=== PATIENT | female | born 1990 | race Caucasian/White ===

== ENCOUNTER → 2017-09-09 | Outpatient (CLI) | payer OTHER ==
[~2017-09-09] MED LIST: AMOCLA875 PO; CODACE30 PO; YAZ; [UNRECOGNIZED DRUG - CODE] PO
[2017-09-12 20:07] LABS: CHLAMYDIA TRACHOMATIS, NAA Negative (Negative); NEISSERIA GONORRHOEAE, NAA Negative (Negative)
== END | disposition home or self-care (01) ==
LOC: LAB SHORT 10:00 → LAB 10:00
PROVIDERS: Obstetrics & Gynecology
DX: Z11.3 Encounter for screening for infections with a predominantly sexual mode of transmission (principal)
CPT/HCPCS: 87491; 87591

== ENCOUNTER → 2019-07-19 | Outpatient (CLI) | payer BC ==
[~2019-07-19] MED LIST changes: +EXPECTA PRENAT1 EACH; +IBUP800 PO
[2019-07-24 04:07] LABS: CHLAMYDIA TRACHOMATIS, NAA Negative (Negative); NEISSERIA GONORRHOEAE, NAA Negative (Negative)
== END | disposition home or self-care (01) ==
LOC: LAB SHORT 14:15 → LAB 14:15
PROVIDERS: Obstetrics & Gynecology
DX: Z01.419 Encounter for gynecological examination (general) (routine) without abnormal findings (principal); Z11.3 Encounter for screening for infections with a predominantly sexual mode of transmission
CPT/HCPCS: 87491; 87591; 87624; G0123

== ENCOUNTER → 2020-01-03 | Outpatient (CLI) | payer BC | END | disposition home or self-care (01) | LOC: LAB 14:00 → LAB SHORT 14:00 | DX: Z34.83 Encounter for supervision of other normal pregnancy, third trimester (principal) | CPT/HCPCS: 87081; 87653 ==

== ENCOUNTER 2020-01-22 20:09 | Inpatient (IN) | payer BC ==
[~2020-01-22] VITALS: Ht 167.6 cm; Wt 83.0 kg
[2020-01-22] MEDS ORDERED: PRENATAL TABLE1 EAC2 PO (20:27)
[2020-01-22 20:54] LABS: BASOPHILS ABSOLUTE AUTO 0.04 K/mm3 (0.00-0.23); BASOPHILS PERCENT AUTO 0 % (0-2); EOSINOPHILS ABSOLUTE AUTO 0.09 K/mm3 (0.00-0.68); EOSINOPHILS PERCENT AUTO 1 % (0-6); Hematocrit 36.5 % (33.0-51.0); Hemoglobin 12.4 g/dL (11.5-16.0); IMMATURE GRAN ABSOLUTE AUTO 0.17 K/mm3 (0.00-0.10); IMMATURE GRAN PERCENT AUTO 1 % (0-1); LYMPHOCYTES PERCENT AUTO 19 % (21-46); MONOCYTES ABSOLUTE AUTO 0.93 K/mm3 (0.16-1.47); MONOCYTES PERCENT AUTO 7 % (4-13); Mean Corpuscular Volume 91 fL (80-100); Mean Platelet Volume 9.8 fL (9.1-12.4); NEUTROPHILS ABSOLUTE AUTO 10.13 K/mm3 (1.96-9.15); NEUTROPHILS PERCENT AUTO 72 % (41-73); Platelet Count 200 K/mm3 (150-400); RDW Coefficient Variation 13.4 % (11.7-14.2); RDW Standard Deviation 44.9 fL (35.1-46.3); White Blood Cell Count 14.06 K/mm3 (4.00-11.30)
[2020-01-24 05:25] LABS: Hematocrit 32.4 % (33.0-51.0); Hemoglobin 10.7 g/dL (11.5-16.0); Mean Corpuscular HGB 30.5 pg (26.0-34.0); Mean Corpuscular Volume 92 fL (80-100); Mean Platelet Volume 10.1 fL (9.1-12.4); Platelet Count 168 K/mm3 (150-400); RDW Coefficient Variation 13.7 % (11.7-14.2); RDW Standard Deviation 45.1 fL (35.1-46.3); Red Blood Cell Count 3.51 M/mm3 (3.80-5.20); White Blood Cell Count 16.88 K/mm3 (4.00-11.30)
--- NOTE | 2020-01-24 13:29 | NUR ---
ASSIST BABY JUST COMPLETED FEEDING WHEN I ROUNDED. MOM SHE REPORTS THAT BABY LATCHES NARROW AND SHE IS WORKING ON BRING CHIN DOWN FOR A WIDER LATCH. 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 ENCOURAGED CHIN TO BREAST AND NOSE TO NIPPLE TO HELP ANCHOR MOUTH OPEN DURING LATCH. LATACION EDUCATION RESOURCES INFORMATION GIVEN.
--- NOTE | 2020-01-24 14:10 | NUR ---
Pt up ambulating in room, denies needs at this time.
--- NOTE | 2020-01-24 14:16 | NUR ---
Printed d/c instructions and teaching reviewed w/pt and . Deny questions at this time. Will prepare for d/c home after 24 hour screening complete.
--- NOTE | 2020-01-24 16:08 | NUR ---
No acute changes this shift. ID bands matched w/nb. Pt denies additional questions or concerns. Pt d/c'd home ambulatory to care of .
== END 2020-01-24 16:26 | disposition home or self-care (01) | DRG 807 ==
LOC: OBS 20:09 → BC 20:13 → OBS 20:21 → BC 20:23
PROVIDERS: ADMIT Obstetrics & Gynecology
PROC: 3E0P7VZ Introduction of Hormone into Female Reproductive, Via Natural or Artificial Opening (ICD-10-PCS; 2020-01-22)
PROC: 10E0XZZ Delivery of Products of Conception, External Approach (ICD-10-PCS; principal; 2020-01-23)
PROC: 0KQM0ZZ Repair Perineum Muscle, Open Approach (ICD-10-PCS; 2020-01-23)
PROC: 10907ZC Drainage of Amniotic Fluid, Therapeutic from Products of Conception, Via Natural or Artificial Opening (ICD-10-PCS; 2020-01-23)
PROC: 00HU33Z Insertion of Infusion Device into Spinal Canal, Percutaneous Approach (ICD-10-PCS; 2020-01-23)
PROC: 3E0R3BZ Introduction of Anesthetic Agent into Spinal Canal, Percutaneous Approach (ICD-10-PCS; 2020-01-23)
DX: O70.1 Second degree perineal laceration during delivery (principal); Z37.0 Single live birth; Z3A.39 39 weeks gestation of pregnancy
CPT/HCPCS: 36415; 51702; 85025; 85027; 86850; 86900; 86901; J1885; J2001; J2590; J3010; J7120

== ENCOUNTER → 2022-08-05 | Outpatient (CLI) | payer BC ==
[~2022-08-05] MED LIST changes: +PRENATAL TABLE1 EAC2 PO
[2022-08-06 15:09] LABS: HPV 16 Negative (Negative); HPV 18 Negative (Negative); HPV OTHER HR TYPES Negative (Negative)
== END | disposition home or self-care (01) ==
LOC: LAB SHORT 09:00 → LAB 09:00
PROVIDERS: Family Medicine
DX: Z01.419 Encounter for gynecological examination (general) (routine) without abnormal findings (principal)
CPT/HCPCS: 87624; G0145

== ENCOUNTER → 2023-11-23 | Outpatient (CLI) | payer OTHER ==
[~2023-11-23] MED LIST changes: +METO10 PO; +ZOLOFT50 MG PO
== END ==
LOC: LAB 10:09 → LAB SHORT 10:09
DX: Z34.83 Encounter for supervision of other normal pregnancy, third trimester (principal)
CPT/HCPCS: 87081; 87150